=== PATIENT | male | born 1965 | race Caucasian/White ===

== ENCOUNTER 2021-05-28 13:05 | Inpatient (IN) ==
[2021-05-28] MEDS ORDERED: KETOROLAC TROMETHAMINE 15 MG/ML VIAL IV ONE (14:08)
[2021-05-28] MEDS ORDERED: LACTATED RINGER'S 1,000 ML IV ONE (14:08)
[2021-05-28] MEDS ORDERED: ONDANSETRON INJ 2 MG/ML 2 ML VIAL IV STA (14:08)
--- NOTE | 2021-05-28 14:10 | Emergency Department Note ---
Impression & Plan COVID-19, Nausea & vomiting ED Provider Note Provider: Franklin Mark MD DATE OF SERVICE: 05/28/2021 CHIEF COMPLAINT: Nausea and vomiting, Covid, short of breath HISTORY OF PRESENT ILLNESS: Patient is a 56-year-old otherwise healthy gentleman presenting here today stating he developed Covid-like symptoms approximately 9 to 10 days ago. Was tested positive in the outpatient setting on Friday at [facility]. Was here on Friday for evaluation. I did extensive work-up at that time and was sent home. Patient states that he has had significant nausea and throwing up anything he tries to eat as well as some minimal diarrhea. Patient a little bit of stomach discomfort but states this is minimal. States he feels very wiped out and tired. Evidently EMS was called this morning received some IV fluid and Zofran but did not want to come to the hospital with them. Discussed with his doctors office was convinced to come here for evaluation. States that his found his pulse ox dropping of 70s when he was sleeping overnight. Patient states he has been minimally ambulatory at home and not functional. Patient states that he tried some Tylenol a day or 2 ago but it did not seem to help so he stopped this. Patient states the Zofran he received earlier did help some but is not been able to tolerate intake of liquids or foods however. No syncope reported. REVIEW OF SYSTEMS: A total of 10 review of systems was obtained and negative except as stated above in the HPI. PAST MEDICAL HISTORY: As noted above MEDICATIONS: Denies prescription medications SOCIAL HISTORY:non-smoker, , lives at home PHYSICAL EXAM: GENERAL: alert and oriented in no acute distress on stretcher although appears fatigued Head: normocephalic and atraumatic EYES: No injection, discharge or icterus. NECK: Trachea midline. LUNGS: Airway patent. No retractions. Breath sounds clear HEART: Regular rate and rhythm. No chest wall tenderness ABDOMEN: Soft and minimally tender, without guarding or rebound. Not peritoneal SKIN: Acyanotic, warm, dry, without rashes EXTREMITIES: Without swelling, tenderness or deformity NEUROLOGICAL: No focal deficits. No aphasia. No facial droop or slurred speech. EK bpm normal sinus rhythm. No PVC or PAC. No acute ST segment elevation or depression with some nonspecific inferior lateral T wave inversions compared to previous from 2 days ago the lateral T wave inversions appear new. CONTINUOUS CARDIAC MONITORING: was ordered and showed a heart rate of 80s bpm in normal sinus rhythm Patient's laboratory studies and imaging reviewed. Differential includes Infection, dehydration, metabolic abnormality, hypo/hyperglycemia, electrolyte disturbance, anemia, hypoxia, cardiac sources, intracerebral event, toxicologic, neurologic, as well as other pathologies. IMPRESSION/MEDICAL DECISION MAKING: Patient is a 56-year-old gentleman now proximately 10 days into illness complaining of significant nausea vomiting lack of oral intake with weakness. Some shortness of breath but did note hypoxia according to his reports overnight into the 70s. Not initially hypoxic here at rest. Patient had a CT of the chest last them 48 hours ago which was negative for PE. Given some fluid hydration here and some Toradol. Repeat blood work was sent as well as EKG and chest x-ray. Doubt an acute intra-abdominal abnormality given his exam. Lower suspicion this is cardiac in nature believe this is likely all sequelae of his COVID-19 infection. Leukopenia slightly improved compared to 2 days ago and LFTs fairly similar. No evidence of UTI. Renal function without evidence of a catheter some slight hypokalemia is noted today. Given some IV fluids here. Patient states his nausea is a bit better but he still feels extremely weak and states he does not feel like he can go home. Chest x-ray still shows multifocal airspace opaciti es. Ambulatory here did not desat, however in discussion with the patient he did not feel comfortable going home with his significant GI symptoms and weakness. Will discuss with the hospitalist for further observation. Will defer any specific Covid treatment such as steroids to the inpatient team. DIAGNOSIS: COVID-19, nausea and vomiting DISPOSITION: Hospitalist will evaluate Patient was agreeable with this plan. 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 Beliefs That Will Affect Care: None Current Living Situation: Spouse Other Information That Helps Us Care for You: No Feels Safe at Home: Yes Safety Concerns: Feels Safe At This Time Assistive Devices: None Allergies Allergies Allergy/AdvReac Type Severity Reaction Status Date / Time No Known Allergies Allergy Unverified 05/28/21 15:58 Home Meds Home Medications Medication Instructions Recorded Confirmed No Known Home Medications 05/26/21 05/28/21 Results & Data (ED) Vital Signs Vital Signs - 24 hr 05/28/21 13:27 05/28/21 13:45 05/28/21 14:00 Temperature 37.1 C Temperature Source Skin Pulse Rate 94 H 87 Pulse Rate [Apical] 87 Pulse Rhythm [Apical] Regular Respiratory Rate 20 24 24 Respiratory Effort / Characteristics Non-Labored Spontaneous Respiratory Depth Normal Respiratory Pattern Regular Blood Pressure 117/81 146/91 H Blood Pressure [Right Arm] 146/91 H Blood Pressure Mean 93 109 Blood Pressure Mean [Right Arm] 109 Pulse Oximetry 91 94 93 Oxygen Delivery Method Room Air Room Air Sepsis Recent Fever Within 48 Hours No Sepsis New/Unexplained Change in Mental Status N/A Sepsis Action Taken by Nursing No Action Required 05/28/21 14:09 05/28/21 14:30 05/28/21 15:00 Temperature Temperature Source Pulse Rate 83 81 Pulse Rate [Apical] Pulse Rhythm [Apical] Respiratory Rate 24 20 Respiratory Effort / Characteristics Respiratory Depth Respiratory Pattern Blood Pressure 139/84 139/82 Blood Pressure [Right Arm] Blood Pressure Mean 102 101 Blood Pressure Mean [Right Arm] Pulse Oximetry 94 94 95 Oxygen Delivery Method Room Air Sepsis Recent Fever Within 48 Hours Sepsis New/Unexplained Change in Mental Status Sepsis Action Taken by Nursing 05/28/21 15:30 05/28/21 16:00 05/28/21 16:30 Temperature Temperature Source Pulse Rate 81 80 77 Pulse Rate [Apical] Pulse Rhythm [Apical] Respiratory Rate 20 20 24 Respiratory Effort / Characteristics Respiratory Depth Respiratory Pattern Blood Pressure 137/82 139/83 131/92 Blood Pressure [Right Arm] Blood Pressure Mean 100 101 105 Blood Pressure Mean [Right Arm] Pulse Oximetry 94 94 94 Oxygen Delivery Method Room Air Sepsis Recent Fever Within 48 Hours Sepsis New/Unexplained Change in Mental Status Sepsis Action Taken by Nursing 05/28/21 17:00 05/28/21 17:30 05/28/21 18:00 Temperature Temperature Source Pulse Rate 78 75 76 Pulse Rate [Apical] Pulse Rhythm [Apical] Respiratory Rate 24 24 24 Respiratory Effort / Characteristics Respiratory Depth Respiratory Pattern Blood Pressure 134/80 135/84 138/84 Blood Pressure [Right Arm] Blood Pressure Mean 98 101 102 Blood Pressure Mean [Right Arm] Pulse Oximetry 96 96 94 Oxygen Delivery Method Sepsis Recent Fever Within 48 Hours Sepsis New/Unexplained Change in Mental Status Sepsis Action Taken by Nursing Laboratory Data Result diagrams: 05/28/21 14:00 05/28/21 14:00 Lab Results 05/28/21 05/28/21 05/28/21 Range/Units 14:00 14:00 14:00 WBC 4.31 L (4.8-10.8) K/uL RBC 5.11 (4.7-6.1) M/uL Hgb 15.6 (14.0-18.0) g/dL Hct 44.9 (42-52) % MCV 87.9 (80-100) fL MCH 30.5 (25-34) pg MCHC 34.7 (32-36) g/dL RDW Std Deviation 43.9 (36.4-46.3) fL RDW Coeff of [place]obi 13.5 (11.5-14.5) % Plt Count 154 (130-400) K/uL MPV 11.2 H (7.4-10.4) fL Immature Gran % (Auto) 0.2 % Neut % (Auto) 78.7 % Lymph % (Auto) 12.5 % [place] % (Auto) 8.6 % Eos % (Auto) 0.0 % Baso % (Auto) 0.0 % Neut # (Auto) 3.39 (1.4-6.5) K/uL Lymph # (Auto) 0.54 L (1.2-3.4) K/uL [place] # (Auto) 0.37 (0.11-0.59) K/uL Eos # (Auto) 0.00 (0-0.5) K/uL Baso # (Auto) 0.00 (0-0.2) K/uL Immature Gran # (Auto) 0.01 (0.00-0.02) K/uL PT 9.8 (9.0-12.0) Seconds INR 1.0 (0.9-1.1) Sodium 137 (136-145) mmol/L Potassium 3.4 L (3.5-5.1) mmol/L Chloride 106 (98-107) mmol/L Carbon Dioxide 25 (21-32) mmol/L Anion Gap 6.0 (3-11) BUN 11 (7-18) mg/dl Creatinine 0.70 (0.6-1.4) mg/dl Est Cr Clr Drug Dosing 133.8 ml/min Est GFR ( Amer) 124.0 ml/min Est GFR (Non-Af Amer) 107.0 ml/min BUN/Creatinine Ratio 16.2 (10-20) Glucose 109 H (70-99) mg/dl Calcium 8.1 L (8.5-10.1) mg/dl Magnesium (1.8-2.4) mg/dl Total Bilirubin 0.4 (0.2-1) mg/dl AST 68 H (15-37) U/L ALT 80 H (12-78) U/L Alkaline Phosphatase 101 (45-117) U/L Troponin I (0-0.045) ng/ml Total Protein 7.5 (6.4-8.2) gm/dl Albumin 3.1 L (3.4-5.0) gm/dl Globulin 4.4 H (2.5-4.0) gm/dl Albumin/Globulin Ratio 0.7 L (0.9-2) TSH (0.300-4.500) uIu/ml Urine Color Urine Appearance (Clear) Urine pH (4.5-7.5) Ur Specific [place] (1.000-1.030) Urine Protein (Negative) Urine Glucose (UA) (Negative) Urine Ketones (Negative) Urine Blood (Negative) Urine Nitrite (Negative) Urine Bilirubin (Negative) Urine Urobilinogen (Negative) Ur Leukocyte Esterase (Negative) Urine WBC (Auto) (0-5) /hpf Urine RBC (Auto) (0-4) /hpf U Hyaline Cast (Auto) (0-5) /lpf U Epithel Cells (Auto) (0-5) /lpf Urine Bacteria (Auto) (Negative) Ur Renal Epithelial Cell Urine Mucus (None Prsent) COVID-19 Eval Order SARS-CoV-2 (PCR) (Negative) 05/28/21 05/28/21 05/28/21 Range/Units 14:00 14:00 14:50 WBC (4.8-10.8) K/uL RBC (4.7-6.1) M/uL Hgb (14.0-18.0) g/dL Hct (42-52) % MCV (80-100) fL MCH (25-34) pg MCHC (32-36) g/dL RDW Std Deviation (36.4-46.3) fL RDW Coeff of [place]obi (11.5-14.5) % Plt Count (130-400) K/uL MPV (7.4-10.4) fL Immature Gran % (Auto) % Neut % (Auto) % Lymph % (Auto) % [place] % (Auto) % Eos % (Auto) % Baso % (Auto) % Neut # (Auto) (1.4-6.5) K/uL Lymph # (Auto) (1.2-3.4) K/uL [place] # (Auto) (0.11-0.59) K/uL Eos # (Auto) (0-0.5) K/uL Baso # (Auto) (0-0.2) K/uL Immature Gran # (Auto) (0.00-0.02) K/uL PT (9.0-12.0) Seconds INR (0.9-1.1) Sodium (136-145) mmol/L Potassium (3.5-5.1) mmol/L Chloride (98-107) mmol/L Carbon Dioxide (21-32) mmol/L Anion Gap (3-11) BUN (7-18) mg/dl Creatinine (0.6-1.4) mg/dl Est Cr Clr Drug Dosing ml/min Est GFR ( Amer) ml/min Est GFR (Non-Af Amer) ml/min BUN/Creatinine Ratio (10-20) Glucose (70-99) mg/dl Calcium (8.5-10.1) mg/dl Magnesium 1.9 (1.8-2.4) mg/dl Total Bilirubin (0.2-1) mg/dl AST (15-37) U/L ALT (12-78) U/L Alkaline Phosphatase (45-117) U/L Troponin I < 0.015 (0-0.045) ng/ml Total Protein (6.4-8.2) gm/dl Albumin (3.4-5.0) gm/dl Globulin (2.5-4.0) gm/dl Albumin/Globulin Ratio (0.9-2) TSH 1.030 (0.300-4.500) uIu/ml Urine Color Dark Yellow Urine Appearance Clear (Clear) Urine pH 6.5 (4.5-7.5) Ur Specific [place] 1.023 (1.000-1.030) Urine Protein 1+ H (Negative) Urine Glucose (UA) Negative (Negative) Urine Ketones 3+ H (Negative) Urine Blood 3+ H (Negative) Urine Nitrite Negative (Negative) Urine Bilirubin Negative (Negative) Urine Urobilinogen Negative (Negative) Ur Leukocyte Esterase Negative (Negative) Urine WBC (Auto) 1-5 (0-5) /hpf Urine RBC (Auto) >30 H (0-4) /hpf U Hyaline Cast (Auto) 10-30 H (0-5) /lpf U Epithel Cells (Auto) >30 H (0-5) /lpf Urine Bacteria (Auto) Negative (Negative) Ur Renal Epithelial Cell Not Reportable Urine Mucus Present A (None Prsent) COVID-19 Eval Order SARS-CoV-2 (PCR) (Negative) 05/28/21 05/28/21 Range/Units 15:25 15:25 WBC (4.8-10.8) K/uL RBC (4.7-6.1) M/uL Hgb (14.0-18.0) g/dL Hct (42-52) % MCV (80-100) fL MCH (25-34) pg MCHC (32-36) g/dL RDW Std Deviation (36.4-46.3) fL RDW Coeff of Tobi (11.5-14.5) % Plt Count (130-400) K/uL MPV (7.4-10.4) fL Immature Gran % (Auto) % Neut % (Auto) % Lymph % (Auto) % [place] % (Auto) % Eos % (Auto) % Baso % (Auto) % Neut # (Auto) (1.4-6.5) K/uL Lymph # (Auto) (1.2-3.4) K/uL [place] # (Auto) (0.11-0.59) K/uL Eos # (Auto) (0-0.5) K/uL Baso # (Auto) (0-0.2) K/uL Immature Gran # (Auto) (0.00-0.02) K/uL PT (9.0-12.0) Seconds INR (0.9-1.1) Sodium (136-145) mmol/L Potassium (3.5-5.1) mmol/L Chloride (98-107) mmol/L Carbon Dioxide (21-32) mmol/L Anion Gap (3-11) BUN (7-18) mg/dl Creatinine (0.6-1.4) mg/dl Est Cr Clr Drug Dosing ml/min Est GFR ( Amer) ml/min Est GFR (Non-Af Amer) ml/min BUN/Creatinine Ratio (10-20) Glucose (70-99) mg/dl Calcium (8.5-10.1) mg/dl Magnesium (1.8-2.4) mg/dl Total Bilirubin (0.2-1) mg/dl AST (15-37) U/L ALT (12-78) U/L Alkaline Phosphatase (45-117) U/L Troponin I (0-0.045) ng/ml Total Protein (6.4-8.2) gm/dl Albumin (3.4-5.0) gm/dl Globulin (2.5-4.0) gm/dl Albumin/Globulin Ratio (0.9-2) TSH (0.300-4.500) uIu/ml Urine Color Urine Appearance (Clear) Urine pH (4.5-7.5) Ur Specific [place] (1.000-1.030) Urine Protein (Negative) Urine Glucose (UA) (Negative) Urine Ketones (Negative) Urine Blood (Negative) Urine Nitrite (Negative) Urine Bilirubin (Negative) Urine Urobilinogen (Negative) Ur Leukocyte Esterase (Negative) Urine WBC (Auto) (0-5) /hpf Urine RBC (Auto) (0-4) /hpf U Hyaline Cast (Auto) (0-5) /lpf U Epithel Cells (Auto) (0-5) /lpf Urine Bacteria (Auto) (Negative) Ur Renal Epithelial Cell Urine Mucus (None Prsent) COVID-19 Eval Order Covid19 at [facility] SARS-CoV-2 (PCR) POSITIVE A* (Negative) Administered Medications Discontinued Medications Lactated Ringer's (Lr) 1,000 mls @ 999 mls/hr IV .[id number] ONE Stop: 05/28/21 15:08 Last Infusion: 05/28/21 15:51 Dose: 0 mls/hr Documented by: [id number] Admin: 05/28/21 14:46 Dose: 999 mls/hr Documented by: [id number] Ketorolac Tromethamine (Ketorolac Tromethamine 15 Mg/Ml Vial) 10 mg IV NOW ONE Stop: 05/28/21 14:09 Last Admin: 05/28/21 14:46 Dose: 10 mg Documented by: [id number] Ondansetron HCl (Ondansetron Inj 2 Mg/Ml 2 Ml Vial) 4 mg IV NOW STA Stop: 05/28/21 14:09 Last Admin: 05/28/21 14:46 Dose: 4 mg Documented by: [id number] Imaging Data Radiologist's Impression: Chest X-Ray 05/28/21 14:09 SINGLE VIEW CHEST CLINICAL HISTORY: Dyspnea. Covid pneumonia. FINDINGS: An AP, portable, upright chest radiograph is compared to chest x-ray and chest CT dated 05/26/2021. The cardiomediastinal silhouette is unremarkable. Elevation of the right hemidiaphragm is similar to previous. Multifocal airspace consolidation is unchanged from 05/26/2021. No large pleural effusion or pneumothorax is seen. The bony thorax is grossly intact. IMPRESSION: Multifocal airspace consolidation is unchanged from 05/26/2021 and consistent with the reported history of a viral pneumonia. Continued radiographic follow-up to resolution is recommended. ACT 112: Negative or not required by law. Electronically signed by: Jarek Jose M.D. 05/28/2021 3:57 PM Discharge Plan Visit Data Chief Complaint: Illness Stated Complaint: Covid+, low O2, vomit, nausea, possible blood clot ED Provider: Franklin Mark Discharge Problem: COVID-19, Nausea & vomiting Patient Disposition: Being Evaluated by Hospitalist Discharge Instructions Interventions: ED Discharge Assessment Last Done: 05/28/21 21:24
[2021-05-28 14:13] LABS: Hematocrit (blood only) 44.9 % (42-52); Hemoglobin 15.6 g/dL (14.0-18.0); Immature Granulocytes # (auto) 0.01 K/uL (0.00-0.02); Immature Granulocytes % (auto) 0.2 %; Lymphocytes # (auto) 0.54 K/uL (1.2-3.4); Lymphocytes % (auto) 12.5 %; Mean Corpuscular Hemoglobin 30.5 pg (25-34); Mean Corpuscular Hgb Conc 34.7 g/dL (32-36); Mean Corpuscular Volume 87.9 fL (80-100); Mean Platelet Volume 11.2 fL (7.4-10.4); Monocytes # (auto) 0.37 K/uL (0.11-0.59); Monocytes % (auto) 8.6 %; Neutrophils # (auto) 3.39 K/uL (1.4-6.5); Neutrophils % (auto) 78.7 %; Platelet Count 154 K/uL (130-400); RDW Coefficient of Variation 13.5 % (11.5-14.5); RDW Standard Deviation 43.9 fL (36.4-46.3); Red Blood Count 5.11 M/uL (4.7-6.1); White Blood Count 4.31 K/uL (4.8-10.8)
[2021-05-28 14:29] LABS: Prothrombin Time 9.8 Seconds (9.0-12.0)
[2021-05-28 15:06] LABS: Albumin Level 3.1 gm/dl (3.4-5.0); BUN Creatinine Ratio 16.2 (10-20); Calcium 8.1 mg/dl (8.5-10.1); Creatinine Clr Calc Pharmacy 133.8 ml/min; Potassium 3.4 mmol/L (3.5-5.1)
[2021-05-28 15:06] LABS: Appearance Urine Clear (Clear); Bacteria Urine Automated Negative (Negative); Bilirubin Urine Negative (Negative); Blood Urine 3+ (Negative); Color Urine Dark Yellow; Epithelial Cell Urine Auto >30 /lpf (0-5); Glucose Urine UA Negative (Negative); Ketones Urine 3+ (Negative); Leukocyte Esterase Urine Negative (Negative); Nitrite Urine Negative (Negative); Protein Urine 1+ (Negative); RBC Urine Automated >30 /hpf (0-4); Specific Gravity Urine 1.023 (1.000-1.030); Urobilinogen Urine Negative (Negative); pH Urine 6.5 (4.5-7.5)
[2021-05-28 15:09] LABS: Albumin Globulin Ratio 0.7 (0.9-2); Bilirubin,Total 0.4 mg/dl (0.2-1); Globulin 4.4 gm/dl (2.5-4.0); Total Protein 7.5 gm/dl (6.4-8.2)
[2021-05-28 15:14] LABS: Mucus Urine Present (None Prsent)
[2021-05-28 15:21] LABS: Magnesium 1.9 mg/dl (1.8-2.4); Thyroid Stimulating Hormone 1.03 uIu/ml (0.300-4.500)
--- NOTE | 2021-05-28 15:58 | XRay Report ---
SINGLE VIEW CHEST CLINICAL HISTORY: Dyspnea. Covid pneumonia. FINDINGS: An AP, portable, upright chest radiograph is compared to chest x-ray and chest CT dated 05/13. The cardiomediastinal silhouette is unremarkable. Elevation of the right hemidiaphragm is sim ilar to previous. Multifocal airspace consolidation is unchanged from 05/26/2021. No large pleural eff usion or pneumothorax is seen. The bony thorax is grossly intact. IMPRESSION: Multifocal airspace consolidation is unchanged from 05/26/2021 and consistent with the rep orted history of a viral pneumonia. Continued radiographic follow-up to resolution is recommended. ACT 112: Negative or not required by law. Electronically signed by: Jarek Jose M.D. 05/28/2021 3:57 PM
--- NOTE | 2021-05-28 16:40 | Electrocardiogram Report ---
Test Reason : Blood Pressure : / mmHG Vent. Rate : 086 BPM Atrial Rate : 086 BPM P-R Int : 138 ms QRS Dur : 084 ms QT Int : 368 ms P-R-T Axes : 037 -10 -06 degrees QTc Int : 440 ms Poor data quality, interpretation may be adversely affected Normal sinus rhythm Nonspecific ST and T wave abnormality Abnormal ECG When compared with ECG of 26-MAY-2021 20:53, No significant change was found Confirmed by Don Ferrara [id number]) on 05/28/2021 4:39:57 PM Referred By: REFERRED SELF Confirmed By:Don Ferrara
[2021-05-28 17:44] LABS: Troponin I < 0.015 ng/ml (0-0.045)
--- NOTE | 2021-05-28 18:08 | History & Physical Report ---
Date of Service May 28, 2021 Assessment & Plan (1) Nausea and vomiting: Plan: Supportive care with antiemetics, IV fluids overnight. Replace electrolytes as needed. (2) Pneumonia due to COVID-19 virus: Plan: Currently not meeting criteria for steroid therapy or antiviral therapy with remdesivir. Continue supportive care efforts. Monitor pulse ox every 4 hours overnight. (3) Transaminitis: Plan: Mildly elevated AST and ALT. Patient reports minimal to no alcohol use. We will investigate further with a right upper quadrant ultrasound. Outpatient record reviewed and there is no historical data to compare this with. Trend in a.m. (4) Hypokalemia: Plan: Will give small amount of potassium supplementation at this time and repeat in a.m. Of note magnesium is normal level. (5) DVT prophylaxis: Plan: Lovenox Full code Disposition-to Med/Surg floor. Likely discharged home tomorrow as long as tolerating p.o. without issues. Fatoumata James DO [facility]ist History of Present Illness Chief Complaint: nausea, "I feel delirious" Primary Care Provider: Daniel Good MD 56 yo M presents with covid pneumonia and multiple symptoms for the past week. He reports his recently being ill with COVID-19 and for the last 10 days he has had symptoms including nausea, vomiting, minimal chest discomfort, occasional coughing that is nonproductive and a headache. He reports that his checked his oxygen saturation while he was sleeping and found it was in the 70s. He reports generalized malaise and delirium. When further pressed about his chest discomfort, he passed it off is minimal and did not offer additional qualifying factors. He will appears minimally uncomfortable and reports the bed being the issue. After IV fluids and antiemetics in the ER he does feel better but does not feel he is well enough to go home. He denies any [id number] medicines or herbals. He denies any other medical problems. He denies alcohol use or smoking. Allergies Allergy/AdvReac Type Severity Reaction Status Date / Time No Known Allergies Allergy Unverified 05/28/21 15:58 Home Medications Medication Instructions Recorded Confirmed Type No Known Home Medications 05/26/21 05/28/21 History Past Med/Surg History Medical History Kidney stone Surgical History H/O right knee surgery H/O umbilical hernia repair Family History Mother Diabetes Social History Smoking Status: Never smoker Preferred Language: [place] Feels Safe at Home: Yes Review of Systems Review of Systems: All systems were reviewed and negative except as indicated in HPI above. Physical Exam Physical Exam: CONSTITUTIONAL: WNWD, vitals as above, generally well-appe aring EYES: Pupils are round and equal bilaterally, normal conjunctivae, no scleral icterus ENT: external ear and nose normal, oropharynx clear NECK: trachea midline, no lymphadenopathy RESPIRATORY: clear to auscultation bilaterally, no crackles, rales or wheezes, normal respiratory effort CARDIOVASCULAR: regular rate and rhythm, S1 and 2 heard without murmurs, gallops or rubs, no JVD, no peripheral edema GASTROINTESTINAL: soft, nontender, nondistended, no guarding MUSCULOSKELETAL: strength 5/5 throughout, head is normocephalic and atraumatic SKIN: warm and dry, face is flushed and warm NEUROLOGIC: CN 2-12 grossly intact, no sensory deficit, normal cognition, normal speech PSYCHIATRIC: alert cooperative and oriented to person, place and time. Results & Data Results & Data ([facility]) Vital Signs (Past 12 Hours) Vital Signs Temp Pulse Pulse Resp BP BP Pulse Ox 05/28/21 17:00 78 24 134/80 96 05/28/21 16:30 77 24 131/92 94 05/28/21 16:00 80 20 139/83 94 05/28/21 15:30 81 20 137/82 94 05/28/21 15:00 81 20 139/82 95 05/28/21 14:30 83 24 139/84 94 05/28/21 14:09 94 05/28/21 14:00 87 24 146/91 H 93 05/28/21 13:45 87 24 146/91 H 94 05/28/21 13:27 37.1 C 94 H 20 117/81 91 Laboratory Results Short CBC 05/28/21 Range/Units 14:00 WBC 4.31 L (4.8-10.8) K/uL Hgb 15.6 (14.0-18.0) g/dL Hct 44.9 (42-52) % Plt Count 154 (130-400) K/uL BMP 05/28/21 14:00 Sodium 137 Potassium 3.4 L Chloride 106 Carbon Dioxide 25 BUN 11 Creatinine 0.70 Glucose 109 H Calcium 8.1 L Cardiac Enzymes 05/28/21 Range/Units 14:00 Troponin I < 0.015 (0-0.045) ng/ml Liver Function 05/28/21 Range/Units 14:00 Total Bilirubin 0.4 (0.2-1) mg/dl AST 68 H (15-37) U/L ALT 80 H (12-78) U/L Alkaline Phosphatase 101 (45-117) U/L Albumin 3.1 L (3.4-5.0) gm/dl Urine 05/28/21 Range/Units 14:50 Urine Color Dark Yellow Urine Appearance Clear (Clear) Urine pH 6.5 (4.5-7.5) Ur Specific [place] 1.023 (1.000-1.030) Urine Protein 1+ H (Negative) Urine Glucose (UA) Negative (Negative) Diagnostic Findings SINGLE VIEW CHEST CLINICAL HISTORY: Dyspnea. Covid pneumonia. FINDINGS: An AP, portable, upright chest radiograph is compared to chest x-ray and chest CT dated 05/26/2021. The cardiomediastinal silhouette is unremarkable. Elevation of the right hemidiaphragm is similar to previous. Multifocal airspace consolidation is unchanged from 05/26/2021. No large pleural effusion or pneumothorax is seen. The bony thorax is grossly intact. IMPRESSION: Multifocal airspace consolidation is unchanged from 05/26/2021 and consistent with the reported history of a viral pneumonia. Continued radiographic follow-up to resolution is recommended. Code Status & VTE Plan VTE Prophylaxis Plan VTE Prophylaxis will be ordered: Yes
[2021-05-28] MEDS ORDERED: POLYETHYLENE (MIRALAX) 17 GM PACK PO PRN (21:18)
[2021-05-28] MEDS ORDERED: ALUMINUM/MAGNESIUM SUSP 30 ML UDC PO PRN (21:18)
[2021-05-28] MEDS ORDERED: ACETAMINOPHEN 325 MG TAB PO PRN (21:18)
[2021-05-28] MEDS ORDERED: POTASSIUM CHLORIDE PWD 20 MEQ PACK PO ONE (21:18)
[2021-05-28 21:54] LABS: Phosphorus 2.2 mg/dl (2.5-4.9)
[2021-05-28] MEDS: ONDANSETRON INJ 2 MG/ML 2 ML VIAL IV PRN (22:19)
[2021-05-28] MEDS: ENOXAPARIN INJ 40 MG/0.4 ML SYR SQ SCH (22:19)
[2021-05-28] MEDS: D5W AND NSS 1,000 ML IV SCH (22:20)
[2021-05-29 06:25] LABS: Hematocrit (blood only) 41.8 % (42-52); Hemoglobin 14.4 g/dL (14.0-18.0); Mean Corpuscular Hemoglobin 30.3 pg (25-34); Mean Corpuscular Hgb Conc 34.4 g/dL (32-36); Platelet Count 151 K/uL (130-400); RDW Coefficient of Variation 13.5 % (11.5-14.5); RDW Standard Deviation 43.7 fL (36.4-46.3); Red Blood Count 4.75 M/uL (4.7-6.1); White Blood Count 4.34 K/uL (4.8-10.8)
[2021-05-29] MEDS: ONDANSETRON INJ 2 MG/ML 2 ML VIAL IV PRN ×2 (06:28→16:35)
[2021-05-29] MEDS: D5W AND NSS 1,000 ML IV SCH (06:28)
[2021-05-29 06:59] LABS: Albumin Level 2.7 gm/dl (3.4-5.0); BUN Creatinine Ratio 18.5 (10-20); C Reactive Protein 5.17 mg/dl (0-0.29); Calcium 7.8 mg/dl (8.5-10.1); Est GFR (African American) 129.5 ml/min; Est GFR (Non-African American) 111.7 ml/min; Potassium 3.1 mmol/L (3.5-5.1)
[2021-05-29 07:02] LABS: Albumin Globulin Ratio 0.7 (0.9-2); Bilirubin,Total 0.3 mg/dl (0.2-1); Globulin 3.9 gm/dl (2.5-4.0); Total Protein 6.6 gm/dl (6.4-8.2)
[2021-05-29] MEDS ORDERED: POTASSIUM CHLORIDE CRTAB 20 MEQ TABCR PO SCH (07:45)
[2021-05-29] MEDS: POTASSIUM CHLORIDE / WTR 10 MEQ/100 ML PLCT IV SCH ×2 (08:55→10:00)
--- NOTE | 2021-05-29 15:09 | Hospitalist Progress Note ---
Date of Service May 29, 2021 Assessment & Plan (1) Nausea and vomiting: Plan: Supportive care with antiemetics, this has improved. Tolerating diet. Supportive care as needed. Consider IVF if diarrhea worsens. (2) Pneumonia due to COVID-19 virus: Plan: Currently not meeting criteria for steroid therapy or antiviral therapy with remdesivir. Continue supportive care efforts. Monitor pulse ox every 4 hours overnight. (3) Transaminitis: Plan: Mildly elevated AST and ALT. Patient reports minimal to no alcohol use. We will investigate further with a right upper quadrant ultrasound. Outpatient record reviewed and there is no historical data to compare this with. Trend in a.m. (4) Hypokalemia: Plan: Will give small amount of potassium supplementation at this time and repeat in a.m. Of note magnesium is normal level. (5) DVT prophylaxis: Plan: Lovenox Full code Disposition-to Med/Surg floor. Likely discharged home tomorrow as long as tolerating p.o. without issues. Fatoumata James DO [facility] Hospitalist Admission and Anticipated Discharge Date Admission Date: May 28, 2021 Subjective 56 yo M with covid pneumonia no hypoxia or worsening SOB denies pain denies FRIAS some diarrhea but feels this is manageable and doesn't need medication denies nausea afebrile Review of Systems Review of Systems: All systems were reviewed and negative except as indicated in HPI above. Physical Exam Physical Exam: CONSTITUTIONAL: WNWD, vitals as above, mildly ill-appearing EYES: normal conjunctivae, no scleral icterus ENT: external ear and nose normal, MMM RESPIRATORY: crackles throughout all lung pedraza, good air flow, no wheezes or rales. normal respiratory effort CARDIOVASCULAR: regular rate and rhythm, S1 and 2 heard without murmurs, gallops or rubs, no JVD, no peripheral edema CHEST: inspection of chest was normal GASTROINTESTINAL: soft, nontender, nondistended, no guarding. MUSCULOSKELETAL: strength 5/5 throughout, head is normocephalic and atraumatic SKIN: warm and dry NEUROLOGIC: CN 2-12 grossly intact, no sensory deficit, normal cognition, normal speech, no tremor PSYCHIATRIC: alert cooperative and oriented to person, place and time. Results & Data Results & Data ([facility]) Vital Signs (Past 12 Hours) Vital Signs Temp Pulse Pulse Resp BP BP Pulse Ox 05/29/21 14:54 37.3 C 77 16 131/79 92 05/29/21 11:15 37.1 C 78 16 128/78 94 05/29/21 08:00 77 05/29/21 07:14 37.0 C 79 18 147/81 H 93 05/29/21 03:18 37.1 C 77 20 133/77 91 Laboratory Results Short CBC 05/29/21 Range/Units 05:55 WBC 4.34 L (4.8-10.8) K/uL Hgb 14.4 (14.0-18.0) g/dL Hct 41.8 L (42-52) % Plt Count 151 (130-400) K/uL BMP 05/29/21 05:55 Sodium 139 Potassium 3.1 L Chloride 108 H Carbon Dioxide 27 BUN 12 Creatinine 0.63 Glucose 121 H Calcium 7.8 L Cardiac Enzymes 05/28/21 Range/Units 14:00 Troponin I < 0.015 (0-0.045) ng/ml Liver Function 05/28/21 05/29/21 Range/Units 14:00 05:55 Total Bilirubin 0.4 0.3 (0.2-1) mg/dl AST 70 H (15-37) U/L ALT 76 (12-78) U/L Alkaline Phosphatase 101 88 (45-117) U/L Albumin 2.7 L (3.4-5.0) gm/dl Medications Administered Current Inpatient Medications Acetaminophen (Acetaminophen 325 Mg Tab) 650 mg PO Q4H PRN PRN Reason: pain/fever Stop: 06/27/21 21:17 Al Hydrox/Mg Hydrox/Simethicone (Aluminum/Magnesium Susp 30 Ml Udc) 30 ml PO Q6H PRN PRN Reason: Dyspepsia Stop: 06/27/21 21:17 Enoxaparin Sodium (Enoxaparin Inj 40 Mg/0.4 Ml Syr) 40 mg SQ HS PARVIZ Stop: 06/27/21 21:17 Last Admin: 05/28/21 22:19 Dose: 40 mg Documented by: Ondansetron HCl (Ondansetron Inj 2 Mg/Ml 2 Ml Vial) 4 mg IV Q6H PRN PRN Reason: Nausea Stop: 06/27/21 21:17 Last Admin: 05/29/21 06:28 Dose: 4 mg Documented by: Polyethylene Glycol (Polyethylene (Miralax) 17 Gm Pack) 17 gm PO DAILY PRN PRN Reason: Constipation Stop: 06/27/21 21:17
[2021-05-29] MEDS ORDERED: POTASSIUM CHLORIDE 40 MEQ in SODIUM CHLORIDE 0.9% 500 ML IV SCH (16:30)
[2021-05-29] MEDS ORDERED: PROMETHAZINE HCL 25 MG TAB PO PRN (18:25)
[2021-05-29] MEDS: ENOXAPARIN INJ 40 MG/0.4 ML SYR SQ SCH (19:37)
[2021-05-30 06:44] LABS: BUN Creatinine Ratio 12.5 (10-20); Creatinine Clr Calc Pharmacy 118.2 ml/min; Est GFR (African American) 117.4 ml/min; Est GFR (Non-African American) 101.3 ml/min; Magnesium 1.8 mg/dl (1.8-2.4); Potassium 3.3 mmol/L (3.5-5.1)
[2021-05-30 06:45] LABS: C Reactive Protein 7.69 mg/dl (0-0.29)
[2021-05-30] MEDS ORDERED: POTASSIUM CHLORIDE CRTAB 20 MEQ TABCR PO STA (08:09)
--- NOTE | 2021-05-30 08:13 | Hospitalist Progress Note ---
Date of Service May 30, 2021 Assessment & Plan (1) Pneumonia due to COVID-19 virus: Plan: Hypoxia overnight, start daily dexamethasone and remdesivir infusions. Prone as able. Continue supportive care efforts. Patient noted an episode of ?hypoxia, diaphoresis today-encouraged to keep oxygen supplementation in place. Diarrhea still present but declines Imodium-states it is manageable. Reports tolerating PO and hydrating. (2) Nausea and vomiting: Plan: Supportive care with antiemetics, this has improved. Tolerating diet. Supportive care as needed. Consider IVF if diarrhea worsens. (3) Transaminitis: Plan: Mildly elevated AST and ALT. Patient reports minimal to no alcohol use. Possibly from recent n/v. Repeat daily while on remdesivir. (4) Hypokalemia: Plan: Will give small amount of potassium supplementation at this time and repeat in a.m. Of note magnesium is normal level. (5) DVT prophylaxis: Plan: Lovenox Full code Disposition-cont to monitor for now. Home when off oxygen. Spoke with his by phone and updated her on the plan. Fatoumata James DO [facility] Hospitalist Admission and Anticipated Discharge Date Admission Date: May 29, 2021 Subjective 56 yo M with covid pneumonia worsening hypoxia overnight reports nausea is somewhat improved K low-patient ok wtih oral supplementation discussed remdesivir with him and he is fine to proceed discussed possible side effects of steroids-he verbalized understanding we discussed proning no other issues reported. Review of Systems Review of Systems: At least ten systems were reviewed and negative except as indicated in HPI above. Physical Exam Physical Exam: CONSTITUTIONAL: WNWD, vitals as above, mildly ill-appearing EYES: normal conjunctivae, no scleral icterus ENT: external ear and nose normal, MMM RESPIRATORY: crackles throughout all lung pedraza, good air flow, no wheezes or rales. normal respiratory effort CARDIOVASCULAR: regular rate and rhythm, S1 and 2 heard without murmurs, gallops or rubs, no JVD, no peripheral edema CHEST: inspection of chest was normal GASTROINTESTINAL: soft, nontender, nondistended, no guarding. MUSCULOSKELETAL: strength 5/5 throughout, head is normocephalic and atraumatic SKIN: warm and dry NEUROLOGIC: CN 2-12 grossly intact, no sensory deficit, normal cognition, normal speech, no tremor PSYCHIATRIC: alert cooperative and oriented to person, place and time. Results & Data Results & Data ([facility]) Vital Signs (Past 12 Hours) Vital Signs Temp Pulse Resp BP Pulse Ox 05/30/21 07:10 37.1 C 83 18 129/71 88 L 05/30/21 03:00 37.6 C H 78 18 123/71 90 05/29/21 23:00 37.6 C H 85 18 140/88 90 Laboratory Results [facility] 05/30/21 05:49 Sodium 137 Potassium 3.3 L Chloride 106 Carbon Dioxide 27 BUN 10 Creatinine 0.80 Glucose 90 Calcium 8.0 L Medications Administered Current Inpatient Medications Acetaminophen (Acetaminophen 325 Mg Tab) 650 mg PO Q4H PRN PRN Reason: pain/fever Stop: 06/27/21 21:17 Al Hydrox/Mg Hydrox/Simethicone (Aluminum/Magnesium Susp 30 Ml Udc) 30 ml PO Q6H PRN PRN Reason: Dyspepsia Stop: 06/27/21 21:17 Enoxaparin Sodium (Enoxaparin Inj 40 Mg/0.4 Ml Syr) 40 mg SQ HS PARVIZ Stop: 06/27/21 21:17 Last Admin: 05/29/21 19:37 Dose: 40 mg Documented by: Dexamethasone 6 mg/ Syringe 1.5 mls @ 1 mls/min IV Q24H PARVIZ Stop: 06/29/21 07:59 Remdesivir 200 mg/ Sodium (Chloride) 250 mls @ 125 mls/hr IV ONE STA; Protocol Stop: 05/30/21 10:06 Ondansetron HCl (Ondansetron Inj 2 Mg/Ml 2 Ml Vial) 4 mg IV Q6H PRN PRN Reason: Nausea Stop: 06/27/21 21:17 Last Admin: 05/29/21 16:35 Dose: 4 mg Documented by: Polyethylene Glycol (Polyethylene (Miralax) 17 Gm Pack) 17 gm PO DAILY PRN PRN Reason: Constipation Stop: 06/27/21 21:17 Potassium Chloride (Potassium Chloride Crtab 20 Meq Tabcr) 40 meq PO NOW STA Stop: 05/30/21 08:10 Promethazine HCl (Promethazine Hcl 25 Mg Tab) 25 mg PO Q6H PRN PRN Reason: Nausea And Vomiting Stop: 06/28/21 18:24 Last Admin: 05/29/21 18:34 Dose: 25 mg Documented by: Sodium Chloride (Sodium Chloride 0.9% 10ml Flush) 30 ml IV Q24H [facility] Stop: 06/03/21 08:16
[2021-05-30] MEDS ORDERED: SODIUM CHLORIDE 0.9% 10ML FLUSH IV SCH (08:45)
[2021-05-30] MEDS ORDERED: REMDESIVIR 200 MG in SODIUM CHLORIDE 0.9% 210 ML IV ONE (08:45)
[2021-05-30] MEDS: dexAMETHasone 6 MG in SYRINGE 0 ML IV SCH (08:58)
[2021-05-30] MEDS: ENOXAPARIN INJ 40 MG/0.4 ML SYR SQ SCH (21:32)
[2021-05-31 08:03] LABS: BUN Creatinine Ratio 20.3 (10-20); C Reactive Protein 8.79 mg/dl (0-0.29); Calcium 8.7 mg/dl (8.5-10.1); Creatinine Clr Calc Pharmacy 131.3 ml/min; Est GFR (African American) 122.6 ml/min; Est GFR (Non-African American) 105.8 ml/min; Magnesium 2.4 mg/dl (1.8-2.4); Potassium 3.6 mmol/L (3.5-5.1)
[2021-05-31 08:06] LABS: Hemoglobin 15.3 g/dL (14.0-18.0); Mean Corpuscular Hemoglobin 31.2 pg (25-34); Mean Corpuscular Hgb Conc 35.6 g/dL (32-36); Mean Corpuscular Volume 87.8 fL (80-100); Platelet Count 229 K/uL (130-400); Platelet Estimate Normal (Normal); RDW Coefficient of Variation 13.4 % (11.5-14.5); RDW Standard Deviation 43.2 fL (36.4-46.3); White Blood Count 5.24 K/uL (4.8-10.8)
[2021-05-31] MEDS: dexAMETHasone 6 MG in SYRINGE 0 ML IV SCH (08:25)
--- NOTE | 2021-05-31 16:39 | Hospitalist Progress Note ---
Date of Service May 31, 2021 Assessment & Plan (1) Pneumonia due to COVID-19 virus: Plan: Cont daily dexamethasone and remdesivir infusions. Prone as able. Continue supportive care efforts. Diarrhea resolved. Reports tolerating PO and hydrating. Two step in am and if no need for oxygen supplementation, to home in am. (2) Nausea and vomiting: Plan: Supportive care with antiemetics, this has improved. Tolerating diet. Supportive care as needed. Consider IVF if diarrhea worsens. (3) Transaminitis: Plan: Mildly elevated AST and ALT. Patient reports minimal to no alcohol use. Possibly from recent n/v. Repeat daily while on remdesivir. consider RUQ us as outpatient (would not perform here 2/2 covid status) (4) Hypokalemia: Plan: within normal limits after replacement, Mg normal. (5) DVT prophylaxis: Plan: Lovenox Full code Disposition-cont to monitor for now. Home when off oxygen. Fatoumata James DO [facility] Hospitalist Admission and Anticipated Discharge Date Admission Date: May 29, 2021 Subjective 56 yo M with covid pneumonia Min hypoxia still present Patient is significantly improved He reports that he is proning Eager to go home soon, ?tmrw diarrhea resolved denies headache, chest pain or other issues. Review of Systems Review of Systems: All systems were reviewed and negative except as indicated in HPI above. Physical Exam Physical Exam: CONSTITUTIONAL: WNWD, vitals as above, NAD-appears improved since yesterday EYES: normal conjunctivae, no scleral icterus ENT: external ear and nose normal, MMM RESPIRATORY: CTA throughout, no wheezes or rales. normal respiratory effort CARDIOVASCULAR: regular rate and rhythm, S1 and 2 heard without murmurs, gallops or rubs, no JVD, no peripheral edema CHEST: inspection of chest was normal GASTROINTESTINAL: soft, nontender, nondistended, no guarding. MUSCULOSKELETAL: strength 5/5 throughout, head is normocephalic and atraumatic SKIN: warm and dry NEUROLOGIC: CN 2-12 grossly intact, no sensory deficit, normal cognition, normal speech, no tremor PSYCHIATRIC: alert cooperative and oriented to person, place and time. Results & Data Results & Data ([facility]) Vital Signs (Past 12 Hours) Vital Signs Temp Pulse Pulse Pulse Resp BP BP 05/31/21 15:00 36.8 C 71 18 116/67 05/31/21 11:26 36.9 C 79 19 128/74 05/31/21 08:00 62 05/31/21 07:48 36.6 C 63 20 129/83 Pulse Ox 05/31/21 15:00 93 05/31/21 11:26 93 05/31/21 08:00 05/31/21 07:48 92 Laboratory Results Short CBC 05/31/21 Range/Units 06:25 WBC 5.24 (4.8-10.8) K/uL Hgb 15.3 (14.0-18.0) g/dL Hct 43.0 (42-52) % Plt Count 229 (130-400) K/uL BMP 05/31/21 06:25 Sodium 140 Potassium 3.6 Chloride 109 H Carbon Dioxide 26 BUN 15 Creatinine 0.72 Glucose 118 H Calcium 8.7 Medications Administered Current Inpatient Medications Acetaminophen (Acetaminophen 325 Mg Tab) 650 mg PO Q4H PRN PRN Reason: pain/fever Stop: 06/27/21 21:17 Al Hydrox/Mg Hydrox/Simethicone (Aluminum/Magnesium Susp 30 Ml Udc) 30 ml PO Q6H PRN PRN Reason: Dyspepsia Stop: 06/27/21 21:17 Enoxaparin Sodium (Enoxaparin Inj 40 Mg/0.4 Ml Syr) 40 mg SQ HS PARVIZ Stop: 06/27/21 21:17 Last Admin: 05/30/21 21:32 Dose: 40 mg Documented by: Dexamethasone 6 mg/ Syringe 1.5 mls @ 1 mls/min IV Q24H PARVIZ Stop: 06/29/21 08:44 Last Admin: 05/31/21 08:25 Dose: 1 mls/min Documented by: Ondansetron HCl (Ondansetron Inj 2 Mg/Ml 2 Ml Vial) 4 mg IV Q6H PRN PRN Reason: Nausea Stop: 06/27/21 21:17 Last Admin: 05/29/21 16:35 Dose: 4 mg Documented by: Polyethylene Glycol (Polyethylene (Miralax) 17 Gm Pack) 17 gm PO DAILY PRN PRN Reason: Constipation Stop: 06/27/21 21:17 Promethazine HCl (Promethazine Hcl 25 Mg Tab) 25 mg PO Q6H PRN PRN Reason: Nausea And Vomiting Stop: 06/28/21 18:24 Last Admin: 05/29/21 18:34 Dose: 25 mg Documented by:
[2021-05-31] MEDS: ENOXAPARIN INJ 40 MG/0.4 ML SYR SQ SCH (20:44)
[2021-06-01 07:59] LABS: Creatinine Clr Calc Pharmacy 119.7 ml/min; Est GFR (Non-African American) 101.8 ml/min
[2021-06-01] MEDS: dexAMETHasone 6 MG in SYRINGE 0 ML IV SCH (08:41)
--- NOTE | 2021-06-01 19:19 | Discharge Summary ---
Date of Service June 01, 2021 Admission HPI Per Admitting Provider 56 yo M presents with covid pneumonia and multiple symptoms for the past week. He reports his recently being ill with COVID-19 and for the last 10 days he has had symptoms including nausea, vomiting, minimal chest discomfort, occasional coughing that is nonproductive and a headache. He reports that his checked his oxygen saturation while he was sleeping and found it was in the 70s. He reports generalized malaise and delirium. When further pressed about his chest discomfort, he passed it off is minimal and did not offer additional qualifying factors. He will appears minimally uncomfortable and reports the bed being the issue. After IV fluids and antiemetics in the ER he does feel better but does not feel he is well enough to go home. He denies any [id number] medicines or herbals. He denies any other medical problems. He denies alcohol use or smoking. Admission Exam Per Admitting Provider CONSTITUTIONAL: WNWD, vitals as above, generally well-appearing EYES: Pupils are round and equal bilaterally, normal conjunctivae, no scleral icterus ENT: external ear and nose normal, oropharynx clear NECK: trachea midline, no lymphadenopathy RESPIRATORY: clear to auscultation bilaterally, no crackles, rales or wheezes, normal respiratory effort CARDIOVASCULAR: regular rate and rhythm, S1 and 2 heard without murmurs, gallops or rubs, no JVD, no peripheral edema GASTROINTESTINAL: soft, nontender, nondistended, no guarding MUSCULOSKELETAL: strength 5/5 throughout, head is normocephalic and atraumatic SKIN: warm and dry, face is flushed and warm NEUROLOGIC: CN 2-12 grossly intact, no sensory deficit, normal cognition, normal speech PSYCHIATRIC: alert cooperative and oriented to person, place and time. Principal Diagnosis COVID-19 pneumonia Transaminitis Discharge Exam GENERAL: Alert and oriented x3. NAD, on RA. HEENT: No pallor, no icterus. Pupils equal, round and reactive to light. Oral mucosa moist. NECK: No JVD, no neck masses. HEART: S1 and S2 heard. Regular rate and rhythm. No murmur, no gallop. RESPIRATORY SYSTEM: Normal AP diameter. No accessory muscle use. No wheezing, no crackles. ABDOMEN: Soft, bowel sounds present, nontender, no distention. CENTRAL NERVOUS SYSTEM: Alert and oriented x3. No facial droop. Speech is clear. Obeys simple commands. Moves extremities. EXTREMITIES: No edema, no erythema seen. Discharge Data Allergies Allergy/AdvReac Type Severity Reaction Status Date / Time No Known Allergies Allergy Unverified 05/28/21 15:58 Consultations 05/28/21 17:12 ED Decision to Admit Stat Hospital Course (1) Pneumonia due to COVID-19 virus: (2) Transaminitis: He was managed in the hospital for the following: #. Pneumonia due to COVID-19 virus: Received loading dose of remdesivir on May 30, was on dexamethasone Patient doing clinically better, nausea/vomiting improved, has been on room air since yesterday per RN. Discharged with 5 days of dexamethasone Patient advised to follow-up with PCP within a week's time Patient made aware that he needs to contact with PCP/emergency if he has shortness of breath or any worsening symptoms. Patient advised to maintain self-isolation for 14 more days upon discharge. #. Nausea and vomiting: Supportive care with antiemetics, this has improved. Tolerating diet #. Transaminitis: Mildly elevated AST and ALT. Patient reports minimal to no alcohol use. Possibly from recent n/v. Consider RUQ us as outpatient (would not perform here 2/2 covid status) Was on Lovenox for DVT prophylaxis while inpatient. Full code Discharge to home with the following instruction: `Covid isolation instructions `Follow-up with your PCP within a week's time. `Get the blood test CMP in 3 days. Forward the result to your PCP. `Contact your PCP/emergency if you have shortness of breath/fever/worsening cough/chest pain. `Complete the dexamethasone as prescribed. Total Time Total Time Spent Total Time Spent (In Minutes): 40 Discharge Plan Discharge Items Patient Disposition: Home - Self-Care Reason For Visit: NAUSEA Discharge Diagnosis: COVID-19 pneumonia Transaminitis Activity: Resume your previous activity Non-emergency contact: Primary Care Provider Call non-emergency contact if: you have any medication questions, your symptoms worsen, you have a fever and your rectal temperature is above 100.4 Follow-up/Referrals: Daniel Good MD [Primary Care Provider] - (Date & Time 06/05/2021 11:00 AM Provider Daniel Good MD [facility] PLEASE NOTE THAT THIS IS A TELEHEALTH APPOINTMENT. YOUR PHYSICIAN WILL CALL YOU ON THE TELEPHONE AT THE APPOINTMENT TIME. IF YOU HAVE ANY QUESTIONS REGARDING THIS APPOINTMENT, PLEASE CALL ) Diet: Regular Addtl Attending Provider Instructions: Home Isolation COVID-19 Instructions The following information about Home Isolation is from the CDC Website: https://www.cdc.gov/coronavirus/2019-ncov/hcp/enpyewbz-xbffazf-ixophj.html Stay home except to get medical care People who are mildly ill with COVID-19 are able to isolate at home during their illness. You should restrict activities outside your home, except for getting medical care. Do not go to work, school, or public areas. Avoid using public transportation, ride-sharing, or taxis. Separate yourself from other people and animals in your home People: As much as possible, you should stay in a specific room and away from other people in your home. Also, you should use a separate bathroom, if available. Animals: You should restrict contact with pets and other animals while you are sick with COVID-19, just like you would around other people. Although there have not been reports of pets or other animals becoming sick with COVID-19, it is still recommended that people sick with COVID-19 limit contact with animals until more information is known about the virus. When possible, have another member of your household care for your animals while you are sick. If you are sick with COVID-19, avoid contact with your pet, including petting, snuggling, being kissed or licked, and sharing food. If you must care for your pet or be around animals while you are sick, wash your hands before and after you interact with pets and wear a face mask. Call ahead before visiting your doctor If you have a medical appointment, call the healthcare provider and tell them th at you have or may have COVID-19. This will help the healthcare providers office take steps to keep other people from getting infected or exposed. Wear a face mask You should wear a face mask when you are around other people (e.g., sharing a room or vehicle) or pets and before you enter a healthcare providers office. If you are not able to wear a face mask (for example, because it causes trouble breathing), then people who live with you should not stay in the same room with you, or they should wear a face mask if they enter your room. Cover your coughs and sneezes Cover your mouth and nose with a tissue when you cough or sneeze. Throw used tissues in a lined trash can. Immediately wash your hands with soap and water for at least 20 seconds or, if soap and water are not available, clean your hands with an alcohol-based hand manager product support that contains at least 60% alcohol. Clean your hands often Wash your hands often with soap and water for at least 20 seconds, especially after blowing your nose, coughing, or sneezing; going to the bathroom; and before eating or preparing food. If soap and water are not readily available, use an alcohol-based hand manager product support with at least 60% alcohol, covering all surfaces of your hands and rubbing them together until they feel dry. Soap and water are the best option if hands are visibly dirty. Avoid touching your eyes, nose, and mouth with unwashed hands. Avoid sharing personal household items You should not share dishes, drinking glasses, cups, eating utensils, towels, or bedding with other people or pets in your home. After using these items, they should be washed thoroughly with soap and water. Clean all high-touch surfaces everyday High touch surfaces include counters, tabletops, doorknobs, bathroom fixtures, toilets, phones, keyboards, tablets, and bedside tables. Also, clean any surfaces that may have blood, stool, or body fluids on them. Use a household cleaning spray or wipe, according to the label instructions. Labels contain instructions for safe and effective use of the cleaning product including precautions you should take when applying the product, such as wearing gloves and making sure you have good ventilation during use of the product. Monitor your symptoms Seek prompt medical attention if your illness is worsening (e.g., difficulty breathing).Beforeseeking care, call your healthcare provider and tell them that you have, or are being evaluated for, COVID-19. Put on a face mask before you enter the facility. These steps will help the healthcare providers office to keep other people in the office or waiting room from getting infected or exposed. Ask your healthcare provider to call the local or state health department. Persons who are placed under active monitoring or facilitated self- monitoring should follow instructions provided by their local health department or occupational health professionals, as appropriate. When working with your local health department check their available hours. If you have a medical emergency and need to call 911, notify the dispatch personnel that you have, or are being evaluated for COVID-19. If possible, put on a face mask before emergency medical services arrive. Discontinuing home isolation Patients with confirmed COVID-19 should remain under home isolation precautions until the risk of secondary transmission to others is thought to be low. The dec ision to discontinue home isolation precautions should be made on a [id number] basis, in consultation with healthcare providers and [facility] and local health departments. Additional instructions: Follow-up with your PCP within a week's time. Get the blood test CMP in 3 days. Forward the result to your PCP. Contact your PCP/emergency if you have shortness of breath/fever/worsening cough/chest pain. Complete the dexamethasone as prescribed. Pending Studies at Discharge: No Stand-Alone Forms: My [email or web address], Smoking Cessation Medications and DC Order Prescriptions: New dexamethasone 6 mg tablet 6 mg PO DAILY 5 Days Qty: 5 RF: 0 No Action No Known Home Medications RF: 0 Discharge Orders: Discharge Order (Routine); Ordered 06/01/21 Ordered By: Charisse Villalpando/Other Patient Handouts: How COVID-19 Spreads, COVID-19 Home Care Admission Data Admit Date/Time: 05/29/21 15:41 Attending Provider: Charisse Vick Admit Provider: Fatoumata James Primary Care Provider: Daniel Good Other Providers: Fatoumata James Other Interventions: Discharge Summary Assessment (RN) Last Done: 06/01/21 13:33
== END 2021-06-01 13:59 | disposition home or self-care (01) | DRG 177 ==
LOC: ED 13:05 → 2E 13:05 → SUATTDRO 05-29 15:41